=== PATIENT | male | born 2000 | race African-American/Black ===

== ENCOUNTER 2019-01-31 20:45 | Emergency (ER) | payer BC, OTHER, SELFPAY ==
[2019-01-31] MEDS ORDERED: Bacitracin Zinc 1 Packet ONE (21:12)
== END 2019-01-31 21:30 | disposition home or self-care (01) ==
LOC: NAV ERS 20:45
DX: S81.002A Unspecified open wound, left knee, initial encounter (principal); S81.001A Unspecified open wound, right knee, initial encounter; S50.312A Abrasion of left elbow, initial encounter; S50.812A Abrasion of left forearm, initial encounter; S50.811A Abrasion of right forearm, initial encounter; S60.812A Abrasion of left wrist, initial encounter; S60.811A Abrasion of right wrist, initial encounter; F90.9 Attention-deficit hyperactivity disorder, unspecified type; V29.9XXA Motorcycle rider (driver) (passenger) injured in unspecified traffic accident, initial encounter
CPT/HCPCS: 99283

== ENCOUNTER 2022-01-26 02:48 | Emergency (ER) | payer BC ==
[2022-01-26] MEDS ORDERED: HYDROcodone/Acetaminophen 5/325 mg Tablet ONE (03:40)
== END 2022-01-26 04:05 | disposition home or self-care (01) ==
LOC: NAV ERS 02:48
DX: S52.612A Displaced fracture of left ulna styloid process, initial encounter for closed fracture (principal); F17.210 Nicotine dependence, cigarettes, uncomplicated; W31.89XA Contact with other specified machinery, initial encounter
CPT/HCPCS: 29105

== ENCOUNTER 2022-02-14 05:16 | Emergency (ER) | payer BC ==
[2022-02-14] MEDS ORDERED: Naproxen 500 MG TAB ONE (06:15)
== END 2022-02-14 06:36 | disposition home or self-care (01) ==
LOC: NAV ERS 05:16
DX: S52.612D Displaced fracture of left ulna styloid process, subsequent encounter for closed fracture with routine healing (principal); S62.122D Displaced fracture of lunate [semilunar], left wrist, subsequent encounter for fracture with routine healing; F17.210 Nicotine dependence, cigarettes, uncomplicated; W23.0XXD Caught, crushed, jammed, or pinched between moving objects, subsequent encounter
CPT/HCPCS: 29125